=== PATIENT | male | born 1985 | race Caucasian/White ===

== ENCOUNTER 2023-07-02 21:59 | Emergency (ER) | payer SELFPAY ==
[2023-07-02 22:14] VITALS: BP 155/93; PULSE 103; RESP 20; TEMP 36.6; O2SAT 97
--- NOTE | 2023-07-02 22:34 | ED_ITS ---
HPI - Altered Mental Status General: Chief Complaint: Altered Mental Status Stated Complaint: ETOH Time Seen by Provider: 07/02/23 22:23 History of Present Illness: 37-year-old male went into the [facility] after drinking beer and taking mushrooms evidently this evening. He has no complaints. Police were called leading to EMS transporting the patient here. He states I just want to go to sleep . He is not homicidal or suicidal. He has been calm, respectful, and appropriate here. Review of Systems Const: Denies: fever(s), chills or body aches Eyes: Denies: change in vision Card: Denies: chest pain or palpitations Resp: Denies: dyspnea, productive cough, non-productive cough or wheezing GI: Denies: abdominal pain, nausea, vomiting, diarrhea or hematochezia Skin/Breast: Denies: rash Neuro: Denies: headache(s), weakness in extremities, dizziness or confusion Physical Exam Const: COMMON NORMALS: no acute distress GENERAL APPEARANCE: cooperative; not ill appearing and not frail appearing HENMT: COMMON NORMALS: normocephalic, atraumatic and Normal external nose present HEAD & SCALP: normocephalic and atraumatic FACE & SINUS: normal facial exam and face symmetric NOSE: Normal external nose present Eye: COMMON NORMALS: Equal, round and reactive pupils present and EOMs intact bilaterally PUPIL: Yes Equal, round and reactive pupils present Neck/C-Spine: GENERAL: Yes trachea midline Chest: CHEST: Yes Symmetrical chest wall rise Resp: COMMON NORMALS: normal respiratory effort, No retractions, No use of accessory muscles and clear to auscultation bilaterally AUSCULTATION: clear to auscultation bilaterally Cardio: COMMON NORMALS: regular rate and regular rhythm RATE: regular rate RHYTHM: regular rhythm GI: COMMON NORMALS: Normal to inspection, nondistended, normoactive bowel sounds present Extremity: COMMON NORMALS: no pedal edema Neuro: MABEL COMA SCALE: document GCS findings Mabel coma scale eye opening: Spontaneous Purdum coma scale verbal response: Orientated Mabel coma scale motor response: Obey commands Purdum coma scale total score: 15 SENSORY EXAM: Yes extremities (intact) Psych: COMMON NORMALS: speech normal SPEECH: Yes normal speech Skin: COMMON NORMALS: no rashes or lesions noted GENERAL SKIN EXAM: no rashes or lesions noted Course Vital Signs: Vital signs: Vital Signs Temperature 98 F 07/02/23 22:14 Pulse Rate 103 H 07/02/23 22:14 Respiratory Rate 14 07/02/23 23:12 Blood Pressure 155/93 07/02/23 22:14 Pulse Oximetry 97 07/02/23 22:14 MDM - Altered Mental Status Medical Decision Making This patient has no medical insults. He is simply a bit intoxicated. He has been calm and respectful. Clinically he is stable. He will be allowed discharge home in the custody of responsible adult. All radiology interpretation(s) finalized by discharge Discharge Plan Discharge Patient Disposition: Home Clinical Impression: Alcoholic intoxication Condition: Stable Discharge Orders: Discharge ED (Routine); Ordered 07/02/23 Ordered By: Vicente Mccauley Patient Instructions: Alcohol Intoxication (ED), Opioid Safety, Pain Management Activity Restrictions/Additional Instructions: You will be discharged to the custody of a responsible adult. Return for any concerns. Coding Level of Care Code ED First Responder for Josh Licea
[2023-07-02 23:12] VITALS: RESP 14
== END 2023-07-02 23:19 | disposition home or self-care (01) ==
PROVIDERS: Emergency Provider Emergency Medicine
DX: F10.129 Alcohol abuse with intoxication, unspecified (principal)
CPT/HCPCS: 99281